=== PATIENT | male | born 1960 | race Caucasian/White ===

== ENCOUNTER 2019-03-21 07:11 | Day surgery (SDC) | payer BC ==
[2019-03-20 15:07] VITALS: BMI 39.5
--- NOTE | 2019-03-21 11:36 | CT ---
CT lumbar spine postmyelogram HISTORY: Low back pain and left lower extremity pain with numbness. COMPARISON: CT lumbar spine postmyelogram on 08/13/2016 FINDINGS: The left kidney is atrophied. There is partial visualization of an exophytic lesion involving the lat eral midportion of the left kidney which is incompletely imaged or evaluated on this exam. Renal sonogram is recommended for further evaluation. There are multiple nonobstructing right renal calculi visualized largest in the superior pole measuri ng 4 mm with additional smaller nonobstructing calculi seen. There is a large exophytic hypodense mass involving the inferior pole right kidney with rim of thin calcification seen involving the anter omedial portion of this large hypodense lesion. This probably represents a large renal cyst and was partially seen on prior CT exam in 2016 but incompletely visualized on that exam. This can also be fu rther evaluated with renal sonogram. Vascular calcifications are seen in the abdominal aorta and involving the iliac arteries. There are 6 nonrib-bearing lumbar-type vertebral bodies. Comparison with prior CT thoracic spine note s that there are 12 thoracic ribs. For the purposes of this examination, the lumbar vertebral body levels will be numbered L1 through L6 with lumbosacral junction labeled L6-S1. There has been interva l postsurgical changes with evidence of posterior fusion at the L5-6 level with bipedicular screws and posterior rods as well as intradiscal prosthesis at this level. No hardware complication is seen. The most distal aspect of the screws in the L6 vertebral body are noted to extend just anterior to the cortex of the L6 vertebral body with the tip of the right-sided screw encroaching on the right co mmon iliac vein. There is stable grade 1 anterolisthesis of L5 on L6. No fracture is seen. The vertebral body heights are within normal limits. L1-2: The conus medullaris terminates at this level. No disc bulge or disc herniation is seen. Centra l spinal canal and neural foramina are patent. L2-3: There is minimal disc osteophyte complex without significant narrowing of the central spinal ca nal. The neural foramina are patent. L3-4: There is no significant disc bulge or disc herniation. Central spinal canal and neural foramina are patent. L4-5: There are mild facet degenerative changes at this level. No significant disc bulge or disc nilsa iation is seen. Laminectomy defect is noted posteriorly at this level. The central spinal canal is patent. There is moderate right and moderate to severe left-sided neural foraminal narrowing. L5-L6: As noted above, there are postsurgical changes at this level with laminectomy defect and evide nce of posterior fusion. The central spinal canal is patent. The right neural foramen appears patent, but there is [id number] left-sided neural foraminal narrowing primarily related to bony encroachment. L6-S1: There is minimal disc osteophyte complex with calcification of the posterior central margin of the intervertebral disc. There is a mild left paracentral disc protrusion which does encroach on the traversing left S1 nerve root but does not appear to displace the nerve root. There is mild left- sided neural foraminal narrowing. The right neural foramen is patent. Central spinal canal is patent. IMPRESSION: 1. Exophytic bilateral renal lesions. Renal sonogram is recommended for further evaluation. 2. Nonobstructing right renal calculi and atrophy of the left kidney. 3. 6 nonrib-bearing lumbar-type vertebral bodies, and for the purposes of this examination, the lumba r vertebral levels are labeled L1 through L6 as described above. 4. Interval postsurgical changes with evidence of posterior fusion at the L5-L6 level and evidence of laminectomy defect. Central spinal canal and right neural foramen are patent this level, but there is mild to moderate left-sided neural foraminal narrowing. 5. Stable grade 1 anterolisthesis of L5 on L6. 6. Degenerative changes in the lower lumbar spine greatest at the L4-5 level with there appears to be moderate right and moderate to severe left-sided neural foraminal narrowing.
--- NOTE | 2019-03-21 14:00 | RAD ---
EXAM: XR Myelogram Lumbar Spine PROVIDED CLINICAL HISTORY: Lumbar spondylosis. Degenerative disc disease. History of prior low back surgery now with low back pa in in left lower extremity pain. COMPARISON: None TECHNIQUE:: The procedure including the risks and complications were explained to the patient, and informed conse nt was obtained. The patient was placed on the fluoroscopy table in the prone position. There are 6 nonrib-bearing lumbar-type vertebral bodies. An area overlying the L4-5 level was marked and then met iculously prepped and draped in usual sterile fashion. The skin and subcutaneous tissues were infiltrated with buffered 1% lidocaine for local anesthesia. A 22-gauge spinal needle was advanced in to the thecal sac. The inner stylette was removed with a return of clear cerebral spinal fluid. Approximately 8 mL of Isovue-M 200 contrast was instilled into the thecal sac. The inner stylette was replaced, and the needle was removed. Hemostasis was achieved with direct pressure. A dry sterile dressing was placed. Patient tolerated the procedure well and without immediate complication. [employer] images of the lumbar spine demonstrate postsurgical changes related to posterior fusion of the lower lumbar spine at the L5-6 level with bipedicular screws and posterior rods transfixing this level. Intradiscal prosthesis is noted in place. There is slight grade 1 anterolisthesis of L5 on L6 which is stable when compared to study on 02/15/2019. The vertebral body heights are within normal limits. No additional level of subluxation is seen. Mild degenerative changes are seen throughout the lumbar spine. Laminectomy defects are seen at the L4-5 and L5-[address] lumbar spine postmyelogram for further details. Fluoroscopy: Total fluoroscopy time 0.4 minutes with a total dose of 104.6 microGy meter squared IMPRESSION: Technically successful lumbar myelogram. Please see CT lumbar spine performed after this procedure fo r further details.
[2019-03-21] MEDS ORDERED: Iopamidol-M 200 41% 20 ML VIAL ONE (16:51)
== END 2019-03-21 10:15 | disposition home or self-care (01) ==
LOC: RAD 07:11
PROVIDERS: ATTEND Neurological Surgery
PROC: B02B1ZZ Computerized Tomography (CT Scan) of Spinal Cord using Low Osmolar Contrast (ICD-10-PCS; principal; 2019-03-21)
DX: M43.16 Spondylolisthesis, lumbar region (principal); M51.34 Other intervertebral disc degeneration, thoracic region; M47.816 Spondylosis without myelopathy or radiculopathy, lumbar region; E11.9 Type 2 diabetes mellitus without complications; D64.9 Anemia, unspecified; J45.909 Unspecified asthma, uncomplicated; M19.90 Unspecified osteoarthritis, unspecified site; N26.1 Atrophy of kidney (terminal); N20.0 Calculus of kidney; G89.29 Other chronic pain; Z88.8 Allergy status to other drugs, medicaments and biological substances; Z95.0 Presence of cardiac pacemaker
CPT/HCPCS: 62304; 72132; Q9966

== ENCOUNTER 2022-03-26 07:02 | Day surgery (SDC) | payer BC ==
[2022-03-23 14:46] VITALS: BMI 39.5
[2022-03-26 07:39] VITALS: TEMP 98.2
[2022-03-26 09:04] VITALS: BP 112/75
[2022-03-26] MEDS ORDERED: Iopamidol-M 300 61% 15 ML VIAL ONE (09:54)
== END 2022-03-26 09:25 | disposition home or self-care (01) ==
LOC: RAD 07:02
PROVIDERS: ATTEND Neurological Surgery
DX: M47.12 Other spondylosis with myelopathy, cervical region (principal); M51.14 Intervertebral disc disorders with radiculopathy, thoracic region; M51.26 Other intervertebral disc displacement, lumbar region; M43.16 Spondylolisthesis, lumbar region; N20.0 Calculus of kidney; N26.1 Atrophy of kidney (terminal); I10 Essential (primary) hypertension; E11.9 Type 2 diabetes mellitus without complications; M81.0 Age-related osteoporosis without current pathological fracture; Z79.02 Long term (current) use of antithrombotics/antiplatelets; Z79.4 Long term (current) use of insulin; Z79.84 Long term (current) use of oral hypoglycemic drugs; Z79.899 Other long term (current) drug therapy; Z88.6 Allergy status to analgesic agent
CPT/HCPCS: 62305; 72050; 72120; 72126; 72129; 72132